=== PATIENT | female | born 1950 | race African-American/Black ===

== ENCOUNTER → 2024-02-22 | Day surgery (SDC) | payer OTHER ==
--- NOTE | 2024-02-22 12:27 | RAD REPORT ---
EXAM DESCRIPTION: US - Guided FNA Non Breast - 02/22/2024 8:42 am CLINICAL HISTORY: E04.1 COMPARISON: No comparisons FINDINGS: Preoperative diagnosis: Suspicious right thyroid nodule. Post operative diagnosis: Same. Conscious Sedation: None Fluoroscopy time: None Contrast used: None Estimated blood loss: Minimal Specimens:As below Informed consent was obtained after discussing the risks and findings with the patient. Time-out proc edure was performed. The anterior neck was prepped and draped in the usual sterile fashion. 1% lidoca ine was infiltrated into the subcutaneous tissues for local anesthesia. Real time ultrasound scanning of the right thyroid lobe demonstrated a solid isoechoic 3.9 cm inferior pole nodule. Under ultrasou nd guidance, using a variety of long and short 25 gauge needles, 5 FNA passes were obtained of this l esion and sent to pathology for evaluation. There were no complications. IMPRESSION: Successful ultrasound-guided right thyroid nodule fine-needle aspiration biopsy/ cytolog y.
== END ==
LOC: FNA 07:08
PROVIDERS: ATTEND Otolaryngology
PROC: 0GBH3ZX Excision of Right Thyroid Gland Lobe, Percutaneous Approach, Diagnostic (ICD-10-PCS; principal; 2024-02-22)
DX: E04.1 Nontoxic single thyroid nodule (principal)
CPT/HCPCS: 88162; 88305